=== PATIENT | female | born 1995 ===

== ENCOUNTER 2020-07-03 14:13 | Emergency (ER) | payer OTHER ==
[~2020-07-03] VITALS: Ht 157.5 cm; Wt 65.3 kg
[2020-07-03] MEDS ORDERED: ONE DAILY ESS400 MCG (14:44)
== END 2020-07-03 18:43 | disposition home or self-care (01) ==
LOC: ER 14:13
DX: O26.851 Spotting complicating pregnancy, first trimester (principal); Z3A.08 8 weeks gestation of pregnancy